=== PATIENT | male | born 1990 | race Hispanic/Latino ===

== ENCOUNTER 2019-09-11 10:12 | Emergency (ER) | payer OTHER | END 2019-09-11 10:58 | disposition home or self-care (01) | LOC: EDH 10:12 | DX: J06.9 Acute upper respiratory infection, unspecified (principal); Z72.0 Tobacco use | CPT/HCPCS: 99281 ==

== ENCOUNTER 2019-10-07 23:36 | Emergency (ER) | payer OTHER | END 2019-10-08 00:05 | disposition home or self-care (01) | LOC: EDH 23:36 | DX: K02.9 Dental caries, unspecified (principal); Z79.899 Other long term (current) drug therapy; Z72.0 Tobacco use ==

== ENCOUNTER 2020-01-03 00:31 | Emergency (ER) | payer OTHER ==
[2020-01-03] MEDS ORDERED: ONDANSETRON ODT 4 MG TAB ONE (00:36)
[2020-01-03] MEDS ORDERED: HYOSCYAMINE SULFATE 0.125 MG TAB.SUBL SL ONE (00:57)
== END 2020-01-03 01:03 | disposition home or self-care (01) ==
LOC: EDH 00:31
DX: R19.7 Diarrhea, unspecified (principal); J31.0 Chronic rhinitis; J02.9 Acute pharyngitis, unspecified; R11.0 Nausea; Z72.0 Tobacco use

== ENCOUNTER 2020-02-04 05:45 | Emergency (ER) | payer BC, OTHER ==
[2020-02-04 05:59] LABS: BASOPHILS % (AUTO) 0.6 % (0.0-5.0); EOSINOPHILS % (AUTO) 1.1 % (0.0-8.0); HEMATOCRIT 44.7 % (42-54); LYMPHOCYTES % (AUTO) 47.6 % (21.0-51.0); MEAN CORPUSCULAR HEMOGLOBIN 30.8 pg (27.0-33.0); MEAN CORPUSCULAR VOLUME 85.5 fL (79-99); MONOCYTES % (AUTO) 6.9 % (3.0-13.0); NEUTROPHILS % (AUTO) 43.3 % (40.0-77.0); PLATELET COUNT (AUTO) 276 K/uL (130-400); RED BLOOD CELL COUNT(AUTO) 5.23 MIL/uL (4.50-6.20); RED CELL DISTRIBUTION WIDTH 12.8 % (11.0-15.5)
[2020-02-04 06:11] LABS: CREATININE 1.2 mg/dL (0.5-1.5); POTASSIUM 3.5 mmol/L (3.5-5.1)
[2020-02-04 06:22] LABS: BILIRUBIN,TOTAL 1.1 mg/dL (0.2-1.0); TOTAL PROTEIN, SERUM 7.4 g/dL (6.0-8.3)
== END 2020-02-04 06:49 | disposition home or self-care (01) ==
LOC: EDH 05:45
DX: F43.0 Acute stress reaction (principal); R00.2 Palpitations; F14.10 Cocaine abuse, uncomplicated; Z72.0 Tobacco use
CPT/HCPCS: 36415; 80053; 84484; 85025; 93005

== ENCOUNTER 2020-02-20 09:58 | Emergency (ER) | payer BC, OTHER ==
[2020-02-20 10:20] LABS: BASOPHILS % (AUTO) 0.2 % (0.0-5.0); EOSINOPHILS % (AUTO) 2.6 % (0.0-8.0); HEMATOCRIT 45.9 % (42-54); LYMPHOCYTES % (AUTO) 35.5 % (21.0-51.0); MEAN CORPUSCULAR HGB CONC 35.3 g/dL (32.0-36.0); MEAN CORPUSCULAR VOLUME 87.9 fL (79-99); MONOCYTES % (AUTO) 5.7 % (3.0-13.0); NEUTROPHILS % (AUTO) 55.3 % (40.0-77.0); PLATELET COUNT (AUTO) 301 K/uL (130-400); RED BLOOD CELL COUNT(AUTO) 5.22 MIL/uL (4.50-6.20); RED CELL DISTRIBUTION WIDTH 13.2 % (11.0-15.5); WHITE BLOOD COUNT (AUTO) 9.8 K/uL (4.8-10.8)
[2020-02-20 10:22] LABS: BILIRUBIN,URINE Negative (NEGATIVE); COLOR,URINE Yellow (YELLOW); GLUCOSE, URINE (UA) Negative (NEGATIVE); KETONES,URINE Negative (NEGATIVE); LEUKOCYTE ESTERASE ,URINE Negative (NEGATIVE); NITRATE,URINE Negative (NEGATIVE); OCCULT BLOOD,URINE Trace (NEGATIVE); PROTEIN,URINE Negative (NEGATIVE)
[2020-02-20 10:23] LABS: APPEARANCE,URINE CLEAR (CLEAR)
[2020-02-20] MEDS ORDERED: FENTANYL CITRATE PF 50 MCG/1 ML 2ML VIAL ONE (10:23)
[2020-02-20] MEDS ORDERED: ONDANSETRON HCL 4 MG/2 ML VIAL ONE (10:23)
[2020-02-20] MEDS ORDERED: SODIUM CHLORIDE 0.9% 1000ML 1,000 ML IV ONE (10:23)
[2020-02-20 10:26] LABS: BACTERIA,URINE Rare /HPF (None Seen); RBC,URINE 0-1 /HPF (0-1); SQUAMOUS EPITHELIAL CELL,UR Rare /HPF (0-2); WBC,URINE 0-1 /HPF (0-1)
[2020-02-20 10:32] LABS: CREATININE 1.1 mg/dL (0.5-1.5); POTASSIUM 3.5 mmol/L (3.5-5.1)
[2020-02-20 10:34] LABS: ALBUMIN 3.8 g/dL (3.5-5.0); BILIRUBIN,TOTAL 1.1 mg/dL (0.2-1.0); TOTAL PROTEIN, SERUM 7.2 g/dL (6.0-8.3)
[2020-02-20] MEDS ORDERED: FAMOTIDINE/PF 20 MG/2 ML VIAL IV ONE (10:43)
[2020-02-20] MEDS ORDERED: KETOROLAC TROMETHAMINE 30MG/ML ONE (10:47)
== END 2020-02-20 14:10 | disposition home or self-care (01) ==
LOC: EDH 09:58
DX: R10.13 Epigastric pain (principal); R11.0 Nausea; Z72.0 Tobacco use
CPT/HCPCS: 36415; 74176; 76705; 80053; 81001; 82150; 83690; 85025; 96374; 96375; 99285; J1885; J2405; J3010; J3490; J7030